=== PATIENT | female | born 1995 | race American Indian/Alaskan Native ===

== ENCOUNTER 2019-06-18 17:49 | Emergency (ER) | payer OTHER, MEDICAID ==
[2019-06-18 18:14] VITALS: BP 126/83
--- NOTE | 2019-06-18 18:15 | Event Note ---
ED Screening Note Date of service: 06/18/19 Time: 18:11 ED Screening Note: 24 y/o female comes in wanting a STD check. Patient thats she has had vag discharge times 7 day. Denies any fever no abdominal pain. Patient has a PCP. LMP 06/11/19. This initial assessment/diagnostic orders/clinical plan/treatment(s) is/are subject to change based on patients health status, clinical progression and re- assessment by fellow clinical providers in the ED. Further treatment and workup at subsequent clinical providers discretion. Patient/guardian urged not to elope from the ED as their condition may be serious if not clinically assessed and managed. Initial orders include:
--- NOTE | 2019-06-18 18:25 | Emergency Department Report ---
Chief Complaint: Urogenital-Female Stated Complaint: STD TESTING Time Seen by Provider: 06/18/19 18:11 - HPI History of Present Illness: 24 y/o female comes in wanting a STD check. Patient thats she has had vag discharge times 7 day. Denies any fever no abdominal pain. Patient has a PCP. LMP 06/11/19. - Exam Vital Signs: Vital Signs 06/18/19 18:11 Temperature 98.7 F Pulse Rate 78 Respiratory 16 Rate Blood Pressure 126/83 O2 Sat by Pulse 100 Oximetry Physical Exam: AxO times 3 Ambulate well [place] stable. MSE screening note: Focused history and physical exam performed. Due to findings the following was ordered: ED Disposition for MSE Clinical Impression: Concern about STD in female without diagnosis Disposition: MED SCREENING EXAM-LEFT Is pt being admited?: No Does the pt Need Aspirin: No Condition: Stable Referrals: [facility] [Outside] - 3-[address] [facility] [Outside] - 3-5 Days [facility] [Outside] - 3[facility]5 Days [facility] [Outside] - 3-5 Days
== END 2019-06-18 19:02 | disposition left against medical advice (07) ==
LOC: ED 17:49
DX: A64 Unspecified sexually transmitted disease (principal)
CPT/HCPCS: 99281